=== PATIENT | female | born 1955 | race Caucasian/White ===

== ENCOUNTER 2018-02-18 20:26 | Inpatient (IN) | END 2018-02-24 18:05 | disposition home or self-care (01) | DRG 445 ==

== ENCOUNTER 2018-04-19 19:31 | Inpatient (IN) | END 2018-05-03 19:00 | disposition home or self-care (01) | DRG 412 ==

== ENCOUNTER 2018-09-02 17:07 | Emergency (ER) | END 2018-09-02 20:53 | disposition home or self-care (01) ==

== ENCOUNTER 2018-09-22 13:07 | Emergency (ER) | END 2018-09-22 15:25 | disposition home or self-care (01) ==

== ENCOUNTER 2019-01-21 14:29 | Emergency (ER) | payer OTHER ==
[~2019-01-21] VITALS: Wt 71.0 kg
[~2019-01-21 14:29] MED LIST: AMLO-147 PO; ARIP30TA4 PO; CARB400T PO; CLON1TAB13 PO; HYDR-4011 PO; LISI40TA3 PO
[2019-01-21 14:35] VITALS: BP 132/63; PULSE 78; RESP 18
[2019-01-21] MEDS ORDERED: traMADol 50 MG TAB PO ONE (17:30)
[2019-01-21] MEDS ORDERED: LIDOCAINE 1% (MPF) 5 ML VIAL INFIL ONE (17:30)
[2019-01-21] MEDS ORDERED: IBUPROFEN 600 MG TAB PO ONE (17:30)
[2019-01-21] MEDS ORDERED: AMLO-147 PO (17:57)
[2019-01-21] MEDS ORDERED: ARIP30TA4 PO (17:57)
[2019-01-21] MEDS ORDERED: LISI40TA3 PO (17:57)
--- NOTE | 2019-01-21 18:01 | ERD ---
ER Documentation Chief Complaint Chief Complaint MED REFILL AND R FOOT PAIN HPI 63-year-old female presents with pain in her right foot related to callus or plantar wart. She also requesting refills on her Abilify, lisinopril and amlodipine. She just moved from the [facility] and is waiting to see PCP. ROS All systems reviewed and are negative except as per history of present illness. Medications Home Meds Active Scripts Amlodipine Besylate* (Amlodipine Besylate*) 10 Mg Tablet, 10 MG PO DAILY, #30 TAB Prov:ENID PITT MD 01/21/19 Lisinopril* (Lisinopril*) 40 Mg Tablet, 40 MG PO DAILY, #30 TAB Prov:ENID PITT MD 01/21/19 Aripiprazole* (Abilify*) 30 Mg Tablet, 30 MG PO DAILY, #30 TAB Prov:ENID PITT MD 01/21/19 Lisinopril* (Lisinopril*) 40 Mg Tablet, 40 MG PO DAILY, #30 TAB Prov:ANDRES TOMLIN PA-C 09/22/18 Hydrocodone/Acetaminophen ([place] 5-325 Tablet) 1 Each Tablet, 1 EACH PO po q4 PRN for PAIN for 30 Days, TAB Prov:SHAWN CAPUTO MD 05/03/18 Amlodipine Besylate* (Amlodipine Besylate*) 10 Mg Tablet, 10 MG PO DAILY for 30 Days, TAB Prov:SHAWN CAPUTO MD 05/03/18 Reported Medications Carbamazepine* (Tegretol Xr*) 400 Mg Tab.sr.12h, 400 MG PO Q12, TAB.SA 04/19/18 Lisinopril* (Lisinopril*) 40 Mg Tablet, 40 MG PO QAM, #30 TAB 02/18/18 Clonazepam* (Clonazepam*) 1 Mg Tablet, 2 MG PO QHS for ANXIETY, TAB 02/18/18 Clonazepam* (Clonazepam*) 1 Mg Tablet, 1 MG PO QAM PRN for ANXIETY, TAB 02/18/18 Aripiprazole* (Abilify*) 30 Mg Tablet, 30 MG PO QAM, #30 TAB 02/18/18 Allergies Allergies: Coded Allergies: chlorpromazine (Verified Allergy, Mild, 04/19/18) haloperidol (Verified Allergy, Mild, 04/19/18) PMhx/Soc History of Surgery: Yes (Cholecystectomy,) Anesthesia Reaction: No Hx Neurological Disorder: No Hx Respiratory Disorders: No Hx Cardiac Disorders: Yes (HTN) Hx Psychiatric Problems: Yes (Bipolar D/O) Hx Miscellaneous Medical Probl: No Hx Alcohol Use: No Hx Substance Use: No Hx Tobacco Use: No Smoking Status: Never smoker FmHx Family History: No diabetes, No coronary disease, No other Physical Exam Vitals Vital Signs Date Temp Pulse Resp B/P (MAP) Pulse Ox O2 O2 Flow FiO2 Time Delivery Rate 01/21/19 98.6 78 18 132/63 99 14:35 (86) Physical Exam Const: No acute distress Head: Atraumatic Eyes: Normal Conjunctiva ENT: Normal External Ears, Nose and Mouth. Neck: Full range of motion. No meningismus. Resp: Clear to auscultation bilaterally Cardio: Regular rate and rhythm, no murmurs Abd: Soft, non tender, non distended. Normal bowel sounds Skin: No petechiae or rashes Back: No midline or flank tenderness Ext: No cyanosis, or edema. Callus likely plantar wart on ball of the right foot. Neur: Awake and alert Psych: Normal Mood and Affect Results 24 hrs Current Medications Medications Dose Sig/Buzz Start Time Status Last (Trade) Ordered Route PRN Stop Time Admin Dose Reason Admin Ibuprofen 600 mg ONCE ONCE 01/21/19 DC 01/21/19 (Motrin) PO 17:30 01/21/19 17:12 17:31 Tramadol 50 mg ONCE ONCE 01/21/19 DC 01/21/19 HCl PO 17:30 01/21/19 17:12 (Ultram) 17:31 Lidocaine 5 ml ONCE ONCE 01/21/19 DC (Xylocaine INFIL 17:30 01/21/19 1% (Mpf)) 17:31 Procedures/MDM Patient presents with a plantar wart on her right foot. She has been waiting a long time for photoengraver and would like to debride it due to pain. She is also requesting refills on Abilify, lisinopril, amlodipine. She has no signs or sym ptoms of hypertensive emergency, endorgan damage. Procedure note-the right foot was prepped with Betadine. 2 cc lidocaine was used for local filtration. Scalpel was used to debride the plantar wart to his face although not cauterized. Patient was discharged home with continue podiatry follow-up, return precautions and primary care follow-up for hypertension. The patient was stable with no new complaints during the ER course. Clinically, there is no current evidence to suggest meningitis, sepsis, acute abdomen, pneumonia, stroke, acute coronary syndrome, pulmonary embolism, aortic dissection or any other emergent condition appearing to require further evaluation or hospitalization. Patient counseled regarding my diagnostic impression and care plan. Prior to discharge all questions answered. Pt agrees with treatment plan and understands strict return precautions. Pt is instructed to follow up with primary care provider within 24-48 hours. Precautionary instructions provided including instructions to return to the ER if not improving or for any worsening or changing symptoms or concerns. Departure Diagnosis: Primary Impression: Plantar wart of left foot Condition: Stable Patient Instructions: Hypertension, Established, Plantar Warts Referrals: [facility] YOU HAVE RECEIVED A MEDICAL SCREENING EXAM AND THE RESULTS INDICATE THAT YOU DO NOT HAVE A CONDITION THAT REQUIRES URGENT TREATMENT IN THE EMERGENCY DEPARTMENT. FURTHER EVALUATION AND TREATMENT OF YOUR CONDITION CAN WAIT UNTIL YOU ARE SEEN IN YOUR DOCTORS OFFICE WITHIN THE NEXT 1-2 DAYS. IT IS YOUR RESPONSIBILITY TO MAKE AN APPOINTMENT FOR FOLOW-UP CARE. IF YOU HAVE A PRIMARY DOCTOR --you should call your primary doctor and schedule an appointment IF YOU DO NOT HAVE A PRIMARY DOCTOR YOU CAN CALL OUR PHYSICIAN REFERRAL HOTLINE AT IF YOU CAN NOT AFFORD TO SEE A PHYSICIAN YOU CAN CHOSE FROM THE FOLLOWING [facility] [address] [facility]. [facility] [address] [facility] [address] [facility] [facility] [address] [facility] [facility] [address] [facility] [facility]. [address] Additional Instructions: See photoengraver and primary doctor for evaluation. Recheck otherwise for worsening symptoms. ENID PITT MD Jan 21, 2019 18:01
== END 2019-01-21 18:10 | disposition home or self-care (01) ==
LOC: FTE 14:29
DX: B07.0 Plantar wart (principal); I10 Essential (primary) hypertension
CPT/HCPCS: Z7502; Z7610; 99281

== ENCOUNTER 2019-03-17 11:02 | Emergency (ER) | payer OTHER ==
[~2019-03-17] VITALS: Ht 167.6 cm; Wt 91.4 kg
[2019-03-17 11:09] VITALS: BP 122/62; PULSE 90; RESP 20; Ht 167.6 cm; Wt 91.4 kg
[2019-03-17] MEDS ORDERED: CYCLOBENZAPRINE 10 MG TAB PO ONE (13:00)
[2019-03-17] MEDS ORDERED: NAPROXEN 500 MG TAB PO ONE (13:00)
[2019-03-17] MEDS ORDERED: NAPR-985 PO (14:04)
[2019-03-17] MEDS ORDERED: CYCL10TA7 PO (14:05)
--- NOTE | 2019-03-17 15:13 | ERD ---
ER Documentation Chief Complaint Chief Complaint Complains of back pain x 3 HPI 63-year-old female presents with complaints of back pain x3 days. Patient states she was getting on a bus when she tripped and fell hurting her back. Patient denies any saddle anesthesia, bowel/bladder incontinence, or loss of motor function. Patient is ambulatory and able to walk without assistance. Patient notes a history of osteoarthritis and previous injuries to the bilat knees and back. Patient denies history of IVDA or DM. She rates her pain as 9 out of 10 localized to the mid back. Has not used any medications for alleviation of her symptoms at this time. ROS All systems reviewed and are negative except as per history of present illness. Medications Home Meds Active Scripts Cyclobenzaprine Hcl* (Cyclobenzaprine Hcl*) 10 Mg Tablet, 10 MG PO TID, #15 TAB Prov:JADE SERNA PA-C 03/17/19 Naproxen* (Naprosyn*) 500 Mg Tablet, 500 MG PO BID PRN for PAIN AND/OR INFLAMMATION, #30 TAB Prov:JADE SERNA PA-C 03/17/19 Amlodipine Besylate* (Amlodipine Besylate*) 10 Mg Tablet, 10 MG PO DAILY, #30 TAB Prov:ENID PITT MD 01/21/19 Lisinopril* (Lisinopril*) 40 Mg Tablet, 40 MG PO DAILY, #30 TAB Prov:ENID PITT MD 01/21/19 Aripiprazole* (Abilify*) 30 Mg Tablet, 30 MG PO DAILY, #30 TAB Prov:ENID PITT MD 01/21/19 Lisinopril* (Lisinopril*) 40 Mg Tablet, 40 MG PO DAILY, #30 TAB Prov:ANDRES TOMLIN PA-C 09/22/18 Hydrocodone/Acetaminophen (Angela 5-325 Tablet) 1 Each Tablet, 1 EACH PO po q4 PRN for PAIN for 30 Days, TAB Prov:SHAWN CAPUTO MD 05/03/18 Amlodipine Besylate* (Amlodipine Besylate*) 10 Mg Tablet, 10 MG PO DAILY for 30 Days, TAB Prov:SHAWN CAPUTO MD 05/03/18 Reported Medications Carbamazepine* (Tegretol Xr*) 400 Mg Tab.sr.12h, 400 MG PO Q12, TAB.SA 04/19/18 Lisinopril* (Lisinopril*) 40 Mg Tablet, 40 MG PO QAM, #30 TAB 02/18/18 Clonazepam* (Clonazepam*) 1 Mg Tablet, 2 MG PO QHS for ANXIETY, TAB 02/18/18 Clonazepam* (Clonazepam*) 1 Mg Tablet, 1 MG PO QAM PRN for ANXIETY, TAB 02/18/18 Aripiprazole* (Abilify*) 30 Mg Tablet, 30 MG PO QAM, #30 TAB 02/18/18 Allergies Allergies: Coded Allergies: chlorpromazine (Verified Allergy, Mild, 03/17/19) haloperidol (Verified Allergy, Mild, 03/17/19) PMhx/Soc History of Surgery: Yes (Cholecystectomy,) Anesthesia Reaction: No Hx Neurological Disorder: No Hx Respiratory Disorders: No Hx Cardiac Disorders: Yes (HTN) Hx Psychiatric Problems: Yes (Bipolar D/O) Hx Miscellaneous Medical Probl: No Hx Alcohol Use: No Hx Substance Use: No Hx Tobacco Use: Yes Smoking Status: Current every day smoker FmHx Family History: No diabetes, No coronary disease, No other Physical Exam Vitals Physical Exam Gen: alert, no acute distress and cooperative, A&Ox3 Head/Eyes: normocephalic, atraumatic, PERRL, conjunctiva normal Neck: supple, nontender, full ROM, no midline vertebral tenderness, no LAD Lungs: no respiratory distress, lungs CTA bilaterally, no wheezes, no rhon chi, no retractions Cardio: Regular rate and rhythm. No murmurs, gallops or rubs. no pedal edema Abdomen: soft, nontender, no rebound, no guarding Ext: Inspection normal, Normal range of motion to all major joints Back: Inspection normal, no midline or CVA tenderness, bilateral lower lumbar and thoracic paraspinous muscle spasm and tenderness, Full ROM. Negative bilateral straight leg raise, normal dorsiflexion BLE, NVI distally Skin: normal to inspection, color normal, warm, dry, intact Neuro: Alert and oriented x3. Appropriate speech, mood and affect. Face is symmetric. Speech is normal. CN II-XII intact. Moves all extremities equally. Ambulates with a steady gait. Psych: calm, no SI/HI, no hallucinations Results 24 hrs Current Medications Medications Dose Sig/Buzz Start Time Status Last (Trade) Ordered Route PRN Stop Time Admin Dose Reason Admin Naproxen 500 mg ONCE ONCE 03/17/19 DC 03/17/19 (Naprosyn) PO 13:00 03/17/19 13:07 13:01 10 mg ONCE ONCE 03/17/19 DC 03/17/19 Cyclobenzapri PO 13:00 03/17/19 12:59 ne HCl 13:01 (Flexeril) Procedures/MDM PROCEDURE: XR Thoracic Spine 3 Views. CLINICAL INDICATION: Back pain and trauma. FINDINGS: Mineralization: Osteopenia. Kyphosis: Normal. Fractures: None. Bony lesions: None. Intervertebral disc heights: Moderate to severe intervertebral disc space narrowing throughout the spine. Soft tissues: Unremarkable. Other: None. IMPRESSION: No visualized traumatic injury. Osteopenia. Moderate to severe degenerative disc disease throughout the spine. If there is high clinical suspicion for traumatic injury, further evaluation with CT should be considered. MDM: This is a very pleasant 63yo F who presents to the ED for evaluation of back pain 3 days s/p injury. Patient was seen and examined, triage note and the nursing notes were reviewed. Patient is in no distress, ambulates with slow, steady gait, stable-appearing and with VSS. Patient denies saddle anesthesia, loss motor function, or bowel/bladder incontinence. On exam no neuro deficits. The patient had no significant deformity, step-offs, altered mental status, or neurologic deficits on physical examination, only positive finding were muscle spasms to the paraspinous muscles. XR imaging initially not going to be ordered d/t lack of midline TTP, however, XR imaging ordered at pt request and was positive for osteopenia and osteoarthritis which patient is currently being followed by her PCP for. No fevers or other systemic complaints. Low suspicion for acute surgical emergency or abscess based on presentation, vital signs, exam, and negative risk factors. Pain was treated with Naproxen and Cyclobenzaprine while in ED and on re-evaluation patient reported improvement of symptoms. Suspicion for cauda equina, cord compression, epidural abscess, a bdominal aortic aneurysm or other serious etiology is low. Patient stable for discharge at this time and prescribed Naproxen and Cyclobenzaprine at time of discharge. Pt reassured and advised to follow-up with PCP within next 1-2 days. Counseled on strict ER return precautions and advised to return within 8-12hours if symptoms worsen of fail to improve. Patient is happy with plan and expresses verbal understanding and agreement to treatment plan. All questions addressed and answered. Departure Diagnosis: Primary Impression: Back pain Back pain location: thoracic back pain Chronicity: acute Back pain laterality: unspecified Qualified Codes: M54.6 - Pain in thoracic spine Additional Impression: Back muscle spasm Condition: Good Patient Instructions: Back Pain (Acute Or Chronic) Additional Instructions: You have been seen today for back pain and muscle spasms. These follow-up with your primary doctor within the next 1 to 2 days for further follow-up and management. At this time you have been prescribed naproxen and Flexeril. Naproxen is an anti-inflammatory/pain medication and Flexeril is a muscle relaxant. Please ensure that you do not drive or operate heavy machinery while taking Flexeril. If you find that your symptoms worsen or do not improve with the use of medication please return to the emergency department for further evaluation. JADE SERNA PA-C March 17, 2019 15:13
== END 2019-03-17 14:19 | disposition home or self-care (01) ==
LOC: FTE 11:02
DX: M62.830 Muscle spasm of back (principal); I10 Essential (primary) hypertension; F17.210 Nicotine dependence, cigarettes, uncomplicated
CPT/HCPCS: 72072; Z7502; Z7610

== ENCOUNTER 2019-05-03 10:41 | Emergency (ER) | payer BC, OTHER ==
[~2019-05-03] VITALS: Ht 157.5 cm; Wt 88.5 kg
[~2019-05-03 10:41] MED LIST changes: +CYCL10TA7 PO; +NAPR-985 PO
[2019-05-03 10:50] VITALS: BP 156/83; PULSE 94; RESP 18; Ht 157.5 cm; Wt 88.5 kg
[2019-05-03] MEDS ORDERED: CARB-160 PO (11:25)
[2019-05-03] MEDS ORDERED: LISI40TA3 PO (11:25)
[2019-05-03] MEDS ORDERED: ARIP30TA4 PO (11:25)
[2019-05-03] MEDS ORDERED: CLON-412 PO (11:25)
--- NOTE | 2019-05-03 12:46 | ERD ---
ER Documentation Chief Complaint Chief Complaint med refil: lisinipril, klonopin, tegretol & abilify HPI 63-year-old female presenting for medication refill of her lisinopril, Klonopin, Tegretol and Abilify. Patient was recently released from a mental health facility at [place] in [facility]. Patient states that she was discharged with medications however was unable to fill them as she lost her prescriptions. She did not relate she was given the prescriptions and her arms and threw them all away. Patient has a history of anxiety and denies any complaints of suicidal homicidal ideations. Patient takes lisinopril 40 mg twice daily, Klonopin 1mg 1 tab in the morning with 2 tabs at night, Tegretol twice daily 200 mg, Abilify 30 mg daily. Patient states she last took her medication 2 days ago. Social history smokes 2 cigarettes a day. ROS All systems reviewed and are negative except as per history of present illness. Medications Home Meds Active Scripts Clonazepam* (Klonopin*) 1 Mg Tablet, 1 MG PO BID, #7 TAB Prov:ANA MORRISON PA-C 05/03/19 Aripiprazole* (Abilify*) 30 Mg Tablet, 30 MG PO DAILY, #30 TAB Prov:ANA MORRISON PA-C 05/03/19 Carbamazepine* (Tegretol Xr*) 200 Mg Tab.sr.12h, 200 MG PO BID, #30 TAB.SA Prov:ANA MORRISON PA-C 05/03/19 Lisinopril* (Lisinopril*) 40 Mg Tablet, 40 MG PO DAILY, #30 TAB Prov:ANA MORRISON PA-C 05/03/19 Cyclobenzaprine Hcl* (Cyclobenzaprine Hcl*) 10 Mg Tablet, 10 MG PO TID, #15 TAB Prov:JADE SERNA PA-C 03/17/19 Naproxen* (Naprosyn*) 500 Mg Tablet, 500 MG PO BID PRN for PAIN AND/OR INFLAMMATION, #30 TAB Prov:JADE SERNA PA-C 03/17/19 Amlodipine Besylate* (Amlodipine Besylate*) 10 Mg Tablet, 10 MG PO DAILY, #30 TAB Prov:ENID PITT MD 01/21/19 Lisinopril* (Lisinopril*) 40 Mg Tablet, 40 MG PO DAILY, #30 TAB Prov:ENID PITT MD 01/21/19 Aripiprazole* (Abilify*) 30 Mg Tablet, 30 MG PO DAILY, #30 TAB Prov:ENID PITT MD 01/21/19 Lisinopril* (Lisinopril*) 40 Mg Tablet, 40 MG PO DAILY, #30 TAB Prov:ANDRES TOMLIN PA-C 09/22/18 Hydrocodone/Acetaminophen ([place] 5-325 Tablet) 1 Each Tablet, 1 EACH PO po q4 PRN for PAIN for 30 Days, TAB Prov:SHAWN CAPUTO MD 05/03/18 Amlodipine Besylate* (Amlodipine Besylate*) 10 Mg Tablet, 10 MG PO DAILY for 30 Days, TAB Prov:SHAWN CAPUTO MD 05/03/18 Reported Medications Carbamazepine* (Tegretol Xr*) 400 Mg Tab.sr.12h, 400 MG PO Q12, TAB.SA 04/19/18 Lisinopril* (Lisinopril*) 40 Mg Tablet, 40 MG PO QAM, #30 TAB 02/18/18 Clonazepam* (Clonazepam*) 1 Mg Tablet, 2 MG PO QHS for ANXIETY, TAB 02/18/18 Clonazepam* (Clonazepam*) 1 Mg Tablet, 1 MG PO QAM PRN for ANXIETY, TAB 02/18/18 Aripiprazole* (Abilify*) 30 Mg Tablet, 30 MG PO QAM, #30 TAB 02/18/18 Allergies Allergies: Coded Allergies: chlorpromazine (Verified Allergy, Mild, 03/17/19) haloperidol (Verified Allergy, Mild, 03/17/19) PMhx/Soc History of Surgery: Yes (Cholecystectomy,) Anesthesia Reaction: No Hx Neurological Disorder: No Hx Respiratory Disorders: No Hx Cardiac Disorders: Yes (HTN) Hx Psychiatric Problems: Yes (Bipolar D/O) Hx Miscellaneous Medical Probl: No Hx Alcohol Use: No Hx Substance Use: No Hx Tobacco Use: Yes Smoking Status: Former smoker FmHx Family History: No diabetes, No coronary disease, No other Physical Exam Vitals Vital Signs Date Temp Pulse Resp B/P (MAP) Pulse Ox O2 O2 Flow FiO2 Time Delivery Rate 05/03/19 97.7 94 18 156/83 97 10:50 (107) Physical Exam GENERAL: The patient is well-appearing, well-nourished, in no acute distress HEENT: Atraumatic. Conjunctivae are pink. Pupils equal, round, and reactive to light. There is no scleral icterus. Tympanic membranes clear bilaterally. Oropharynx clear. NECK: C-spine is soft and supple. There is no meningismus. There is no cervic al lymphadenopathy CHEST: Clear to auscultation bilaterally. There are no rales, wheezes or rhonchi. HEART: Regular rate and rhythm. No murmurs, clicks, rubs or gallops. ABDOMEN:Soft, nontender and nondistended. Good bowel sounds. No rebound or guarding. No gross peritonitis. No gross organomegaly or masses. Procedures/MDM MDM: 63-year-old female presenting for medication refill. Patient denies any suicidal homicidal ideations today. Patient will be discharged with supportive medications. Patient will only be discharged with 7 tabs of Klonopin given it is a controlled benzodiazepine and she is told to follow-up with her primary doctor. Patient is told symptoms change or worsen to return immediately to the ER. All questions answered at discharge Departure Diagnosis: Primary Impression: Encounter for medication refill Condition: Stable Patient Instructions: Taking Medicine Safely Referrals: [facility] YOU HAVE RECEIVED A MEDICAL SCREENING EXAM AND THE RESULTS INDICATE THAT YOU DO NOT HAVE A CONDITION THAT REQUIRES URGENT TREATMENT IN THE EMERGENCY DEPARTMENT. FURTHER EVALUATION AND TREATMENT OF YOUR CONDITION CAN WAIT UNTIL YOU ARE SEEN IN YOUR DOCTORS OFFICE WITHIN THE NEXT 1-2 DAYS. IT IS YOUR RESPONSIBILITY TO MAKE AN APPOINTMENT FOR FOLOW-UP CARE. IF YOU HAVE A PRIMARY DOCTOR --you should call your primary doctor and schedule an appointment IF YOU DO NOT HAVE A PRIMARY DOCTOR YOU CAN CALL OUR PHYSICIAN REFERRAL HOTLINE AT IF YOU CAN NOT AFFORD TO SEE A PHYSICIAN YOU CAN CHOSE FROM THE FOLLOWING [facility] [address] [facility]. [facility] [address] [facility] [facility] [address] [facility]. [facility] [address] [facility]. [facility] [address] [facility]. [facility] [address] Additional Instructions: FOLLOW UP WITH YOUR PRIMARY CARE PHYSICIAN TOMORROW.Return to this facility if you are not improving as expected. ANA MORRISON PA-C May 03, 2019 12:46
== END 2019-05-03 11:34 | disposition home or self-care (01) ==
LOC: FTE 10:41
DX: Z76.0 Encounter for issue of repeat prescription (principal); I10 Essential (primary) hypertension; Z87.891 Personal history of nicotine dependence
CPT/HCPCS: 99281

== ENCOUNTER 2019-05-17 15:30 | Emergency (ER) | payer BC ==
[~2019-05-17] VITALS: Ht 157.5 cm; Wt 87.4 kg
[~2019-05-17 15:30] MED LIST changes: +CARB-160 PO; +CLON-412 PO
[2019-05-17 15:34] VITALS: BP 188/79; PULSE 101; RESP 16; Ht 157.5 cm; Wt 87.4 kg
[2019-05-17] MEDS ORDERED: ARIP30TA4 PO (16:41)
[2019-05-17] MEDS ORDERED: CARB-160 PO (16:41)
--- NOTE | 2019-05-17 16:46 | ERD ---
ER Documentation Chief Complaint Chief Complaint needs refill of klonopin, abilify and tegratol, out for 1 week HPI Patient is a 63-year-old female, past medical history of hypertension, bipolar disorder, presents to the ER for medication refill. Patient states she needs a refill of her Klonopin, Abilify and Tegretol. Patient states she lost his medications on the bus. Patient states that she is not able to see a mental health specialist until July. Patient denies any fevers or chills. Patient denies any suicidal ideations or homicidal ideations. Patient denies any visual or auditory hallucinations. Patient has no other concerns or complaints at this time. ROS All systems reviewed and are negative except as per history of present illness. Medications Home Meds Active Scripts Aripiprazole* (Abilify*) 30 Mg Tablet, 30 MG PO DAILY, #30 TAB Prov:TRI KELLEY PA-C 05/17/19 Carbamazepine* (Tegretol Xr*) 200 Mg Tab.sr.12h, 200 MG PO Q12, #30 TAB.SA Prov:TRI KELLEY PA-C 05/17/19 Clonazepam* (Klonopin*) 1 Mg Tablet, 1 MG PO BID, #7 TAB Prov:ANA MORRISON PA-C 05/03/19 Aripiprazole* (Abilify*) 30 Mg Tablet, 30 MG PO DAILY, #30 TAB Prov:ANA MORRISON PA-C 05/03/19 Carbamazepine* (Tegretol Xr*) 200 Mg Tab.sr.12h, 200 MG PO BID, #30 TAB.SA Prov:ANA MORRISON PA-C 05/03/19 Lisinopril* (Lisinopril*) 40 Mg Tablet, 40 MG PO DAILY, #30 TAB Prov:ANA MORRISON PA-C 05/03/19 Cyclobenzaprine Hcl* (Cyclobenzaprine Hcl*) 10 Mg Tablet, 10 MG PO TID, #15 TAB Prov:JADE SERNA PA-C 03/17/19 Naproxen* (Naprosyn*) 500 Mg Tablet, 500 MG PO BID PRN for PAIN AND/OR INFLAMMATION, #30 TAB Prov:JADE SERNA PA-C 03/17/19 Amlodipine Besylate* (Amlodipine Besylate*) 10 Mg Tablet, 10 MG PO DAILY, #30 TAB Prov:ENID PITT MD 01/21/19 Lisinopril* (Lisinopril*) 40 Mg Tablet, 40 MG PO DAILY, #30 TAB Prov:ENID PITT MD 01/21/19 Aripiprazole* (Abilify*) 30 Mg Tablet, 30 MG PO DAILY, #30 TAB Prov:ENID PITT MD 01/21/19 Lisinopril* (Lisinopril*) 40 Mg Tablet, 40 MG PO DAILY, #30 TAB Prov:ANDRES TOMLIN PA-C 09/22/18 Hydrocodone/Acetaminophen ([place] 5-325 Tablet) 1 Each Tablet, 1 EACH PO po q4 PRN for PAIN for 30 Days, TAB Prov:SHAWN CAPUTO MD 05/03/18 Amlodipine Besylate* (Amlodipine Besylate*) 10 Mg Tablet, 10 MG PO DAILY for 30 Days, TAB Prov:SHAWN CAPUTO MD 05/03/18 Reported Medications Carbamazepine* (Tegretol Xr*) 400 Mg Tab.sr.12h, 400 MG PO Q12, TAB.SA 04/19/18 Lisinopril* (Lisinopril*) 40 Mg Tablet, 40 MG PO QAM, #30 TAB 02/18/18 Clonazepam* (Clonazepam*) 1 Mg Tablet, 2 MG PO QHS for ANXIETY, TAB 02/18/18 Clonazepam* (Clonazepam*) 1 Mg Tablet, 1 MG PO QAM PRN for ANXIETY, TAB 02/18/18 Aripiprazole* (Abilify*) 30 Mg Tablet, 30 MG PO QAM, #30 TAB 02/18/18 Allergies Allergies: Coded Allergies: chlorpromazine (Verified Allergy, Mild, 03/17/19) haloperidol (Verified Allergy, Mild, 03/17/19) PMhx/Soc History of Surgery: Yes (Cholecystectomy,) Anesthesia Reaction: No Hx Neurological Disorder: No Hx Respiratory Disorders: No Hx Cardiac Disorders: Yes (HTN) Hx Psychiatric Problems: Yes (Bipolar D/O) Hx Miscellaneous Medical Probl: No Hx Alcohol Use: No Hx Substance Use: No Hx Tobacco Use: Yes Smoking Status: Current every day smoker FmHx Family History: No diabetes Physical Exam Vitals Vital Signs Date Temp Pulse Resp B/P (MAP) Pulse Ox O2 O2 Flow FiO2 Time Delivery Rate 05/17/19 99.5 101 16 188/79 98 15:34 (115) Physical Exam GENERAL: Well-developed, well-nourished female. Appears in no acute distress. Speaking in full sentences. HEAD: Normocephalic, atraumatic. EYES: Pupils are equally reactive bilaterally. EOMs grossly intact. No conjunctival erythema. ENT: Moist mucous membranes. No uvula deviation. No kissing tonsils. NECK: Supple. No meningismus. Normal range of motion of the neck. LUNG: Clear to auscultation bilaterally. No rhonchi, wheezing, rales or coarse breath sounds. HEART: Regular rate and rhythm. No murmurs, rubs or gallops. EXTREMITIES: Equal pulses bilaterally. No peripheral clubbing, cyanosis or edema. No unilateral leg swelling. NEUROLOGIC: Alert and oriented. Moving all four extremities without any difficulty. Normal speech. Steady gait. SKIN: Normal color. Warm and dry. No rashes or lesions. PSYCH: Normal mood and affect. Procedures/MDM MEDICAL DECISION MAKING: Patient is a 63-year-old female presents the ER for concerns of medication refill.. Vital signs were reviewed. Patient is afebrile. Patient was not hypoxic. Patient was hemodynamically stable. Patient was advised I will refill her Tegretol as well as her Abilify. Patient was advised that she will need to follow-up with mental health professional in the next few days for any additional refills she is requesting. Referral information was provided for additional psychiatrist in the area. Patient denied any homicidal or suicidal ideations. Patient had no visual or auditory hallucinations. PRESCRIPTION: Abilify, Tegretol DISCHARGE: At this time, patient is stable for discharge and outpatient management. I have instructed the patient to follow-up with his/her primary care physician in 1-2 days. I have discussed with the patient the possibility of needing to see a specialist for further workup and imaging studies if symptoms persist. I have instructed the patient to promptly return to the ER for any new or worsening symptoms including increased pain, fever, nausea, vomiting, weakness or LOC. The patient and/or family expressed understanding of and agreement with this plan. All questions were answered. Home care instructions were provided. Patients blood pressure was elevated (>120/80) but appears stable without evidence of hypertensive emergency, hypertensive urgency or end-organ failure. I had discussion with the patient about the risks of hypertension. I have advised the patient to follow up with his/her primary care physician for outpatient monitoring and treatment for hypertension in 2-3 days. I have instructed the patient to return to the ER for any new or worsening symptoms including chest pain, shortness of breath, headache, blurred vision, confusion, nausea, vomiting or LOC. Disclaimer: Inadvertent spelling and grammatical errors are likely due to EHR/dictation software use and do not reflect on the overall quality of patient care. Also, please note that the electronic time recorded on this note does not necessarily reflect the actual time of the patient encounter. Departure Diagnosis: Primary Impression: Encounter for medication refill Additional Impression: Bipolar 1 disorder, mixed Condition: Fair Patient Instructions: Taking Medicine Safely Referrals: TRAE PEREIRA (PCP) MARISSA ROJAS,NARINDER SHERIFF MD,BRI ROB,TONY ROGEL,TERESE Baird. PHD SYDNIE POLLOCK MD,FRED PÉREZ MD,ASHA WOLFE MD,NIKHIL STRONG Additional Instructions: See referral list of psychologist/ psychiatrist. Call your primary care doctor TOMORROW for an appointment during the next 1-2 days.See the doctor sooner or return here if your condition worsens before your appointment time. TRI KELLEY PA-C May 17, 2019 16:46
== END 2019-05-17 16:47 | disposition home or self-care (01) ==
LOC: FTE 15:30
DX: F31.60 Bipolar disorder, current episode mixed, unspecified (principal); I10 Essential (primary) hypertension; F17.210 Nicotine dependence, cigarettes, uncomplicated
CPT/HCPCS: 99281

== ENCOUNTER 2019-05-30 13:00 | Emergency (ER) | payer BC ==
[~2019-05-30] VITALS: Ht 157.5 cm; Wt 88.8 kg
[2019-05-30 13:03] VITALS: BP 172/69; PULSE 87; RESP 18; Ht 157.5 cm; Wt 88.8 kg
--- NOTE | 2019-05-30 13:52 | ERD ---
ER Documentation Chief Complaint Chief Complaint lt foot pain , rt index finger pain , also c/o bug bites on hands HPI 63-year-old female, with history of bipolar disorder, presents the emergency department, complaining of painful callus on the left foot. She is also requesting a cream for multiple insect bites. Otherwise no fever, no chills. ROS All systems reviewed and are negative except as per history of present illness. Medications Home Meds Active Scripts Calamine* (Calamine*) 120 Ml Lotion, 1 APPLIC TOP Q4H for RASH for 7 Days, EA Prov:JAVED ELI MD 05/30/19 Aripiprazole* (Abilify*) 30 Mg Tablet, 30 MG PO DAILY, #30 TAB Prov:TRI KELLEY PA-C 05/17/19 Carbamazepine* (Tegretol Xr*) 200 Mg Tab.sr.12h, 200 MG PO Q12, #30 TAB.SA Prov:TRI KELLEY PA-C 05/17/19 Clonazepam* (Klonopin*) 1 Mg Tablet, 1 MG PO BID, #7 TAB Prov:ANA MORRISON PA-C 05/03/19 Aripiprazole* (Abilify*) 30 Mg Tablet, 30 MG PO DAILY, #30 TAB Prov:ANA MORRISON PA-C 05/03/19 Carbamazepine* (Tegretol Xr*) 200 Mg Tab.sr.12h, 200 MG PO BID, #30 TAB.SA Prov:ANA MORRISON PA-C 05/03/19 Lisinopril* (Lisinopril*) 40 Mg Tablet, 40 MG PO DAILY, #30 TAB Prov:ANA MORRISON PA-C 05/03/19 Cyclobenzaprine Hcl* (Cyclobenzaprine Hcl*) 10 Mg Tablet, 10 MG PO TID, #15 TAB Prov:JADE SERNA PA-C 03/17/19 Naproxen* (Naprosyn*) 500 Mg Tablet, 500 MG PO BID PRN for PAIN AND/OR INFLAMMATION, #30 TAB Prov:JADE SERNA PA-C 03/17/19 Amlodipine Besylate* (Amlodipine Besylate*) 10 Mg Tablet, 10 MG PO DAILY, #30 TAB Prov:ENID PITT MD 01/21/19 Lisinopril* (Lisinopril*) 40 Mg Tablet, 40 MG PO DAILY, #30 TAB Prov:ENID PITT MD 01/21/19 Aripiprazole* (Abilify*) 30 Mg Tablet, 30 MG PO DAILY, #30 TAB Prov:ENID PITT MD 01/21/19 Lisinopril* (Lisinopril*) 40 Mg Tablet, 40 MG PO DAILY, #30 TAB Prov:ANDRES TOMLIN PA-C 09/22/18 Hydrocodone/Acetaminophen ([place] 5-325 Tablet) 1 Each Tablet, 1 EACH PO po q4 PRN for PAIN for 30 Days, TAB Prov:SHAWN CAPUTO MD 05/03/18 Amlodipine Besylate* (Amlodipine Besylate*) 10 Mg Tablet, 10 MG PO DAILY for 30 Days, TAB Prov:SHAWN CAPUTO MD 05/03/18 Reported Medications Carbamazepine* (Tegretol Xr*) 400 Mg Tab.sr.12h, 400 MG PO Q12, TAB.SA 04/19/18 Lisinopril* (Lisinopril*) 40 Mg Tablet, 40 MG PO QAM, #30 TAB 02/18/18 Clonazepam* (Clonazepam*) 1 Mg Tablet, 2 MG PO QHS for ANXIETY, TAB 02/18/18 Clonazepam* (Clonazepam*) 1 Mg Tablet, 1 MG PO QAM PRN for ANXIETY, TAB 02/18/18 Aripiprazole* (Abilify*) 30 Mg Tablet, 30 MG PO QAM, #30 TAB 02/18/18 Allergies Allergies: Coded Allergies: chlorpromazine (Verified Allergy, Mild, 03/17/19) haloperidol (Verified Allergy, Mild, 03/17/19) PMhx/Soc History of Surgery: Yes (Cholecystectomy,) Anesthesia Reaction: No Hx Neurological Disorder: No Hx Respiratory Disorders: No Hx Cardiac Disorders: Yes (HTN) Hx Psychiatric Problems: Yes (Bipolar D/O) Hx Miscellaneous Medical Probl: No Hx Alcohol Use: No Hx Substance Use: No Hx Tobacco Use: Yes FmHx Family History: diabetes Physical Exam Vitals Vital Signs Date Temp Pulse Resp B/P (MAP) Pulse Ox O2 O2 Flow FiO2 Time Delivery Rate 05/30/19 99.2 87 18 172/69 99 13:03 (103) Physical Exam Const: No acute distress Head: Atraumatic Eyes: Normal Conjunctiva ENT: Normal External Ears, Nose and Mouth. Neck: Full range of motion. No meningismus. Resp: Clear to auscultation bilaterally Cardio: Regular rate and rhythm, no murmurs Abd: Soft, non tender, non distended. Normal bowel sounds Skin: No petechiae or rashes Back: No midline or flank tenderness Ext: Left foot with plantar callus, no evidence of infection, no cyanosis, or edema Neur: Awake and alert Psych: Normal Mood and Affect Procedures/MDM During the visit, the patient was evaluated for other possible injuries including fracture, nerve/tendon/ ligament damage, no signs of acute local infection, less likely systemic infectious process. Callus removal procedure: Location: Technique: An 18-gauge needle was used to carefully scrape the superficial layers of the skin until the callus core was visualized and with the splinter removal it was successfully removed without complications. ER return precautions including infection, worsening of pain were discussed with patient. Follow-up in the next 2 days with the primary care provider. Disclaimer: Inadvertent spelling and grammatical errors are likely due to EHR/dictation software use and do not reflect on the overall quality of patient care. Also, please note that the electronic time recorded on this note does not necessarily reflect the actual time of the patient encounter. Departure Diagnosis: Primary Impression: Callus of foot Additional Impression: Insect bite Condition: Stable Additional Instructions: Thank you very much for allowing us to participate in your care. Your health and safety is our top priority at [facility]. The evaluation in the emergency department has been done to rule out an acute e mergency. Chronic, [id number] conditions may have not been evaluated; therefore, you need to follow up with a primary care provider in the next 48h. If symptoms persist, worsen or new symptoms develop, then patient should return to the ED immediately. Call your primary care doctor TOMORROW for an appointment during the next 2-4 days and bring all the information provided. Have prescriptions filled and follow precisely the directions on the label. If the symptoms get worse and your provider is unavailable, return to the Emergency Department immediately. JAVED ELI MD 15, 2019 13:52
[2019-05-30] MEDS ORDERED: CALAMINE TOP (13:53)
== END 2019-05-30 13:58 | disposition home or self-care (01) ==
LOC: E/R 13:00
DX: L84 Corns and callosities (principal); I10 Essential (primary) hypertension; S60.561A Insect bite (nonvenomous) of right hand, initial encounter; W57.XXXA Bitten or stung by nonvenomous insect and other nonvenomous arthropods, initial encounter; Y92.9 Unspecified place or not applicable; Z87.891 Personal history of nicotine dependence
CPT/HCPCS: 99282